=== PATIENT | female | born 2000 | race American Indian/Alaskan Native ===

== ENCOUNTER 2018-06-10 15:08 | Emergency (ER) | payer MEDICAID ==
--- NOTE | 2018-06-10 16:19 | Emergency Department Report ---
ED Back Pain/Injury HPI - General Chief Complaint: Back Pain/Injury Stated Complaint: UPPER AND MIDDLE BACK PAIN Time Seen by Provider: 06/10/18 15:24 Source: patient Limitations: No Limitations - History of Present Illness Initial Comments: 18-year-old female with left upper back pain since yesterday. Patient states she pulled a muscle from lifting and carrying her child's car seat. Denies fever, cough, SOB MD Complaint: back pain -: days(s) (1) Radiation: none Severity: mild Quality: sharp Consistency: intermittent Improves With: immobilization Worsens With: movement Context: unknown Associated Symptoms: denies: chest pain, cough, shortness of breath - Related Data Previous Rx's Medication Instructions Recorded Last Taken Type Methocarbamol [Robaxin-750] 750 mg PO Q6HR PRN #20 tablet 06/10/18 Unknown Rx Naproxen [Naprosyn] 500 mg PO BID #20 tablet 06/10/18 Unknown Rx Allergies Allergy/AdvReac Type Severity Reaction Status Date / Time No Known Allergies Allergy Unverified 06/10/18 15:08 ED Review of Systems ROS: Stated complaint: UPPER AND MIDDLE BACK PAIN Other details as noted in HPI Comment: All other systems reviewed and negative Constitutional: denies: chills, fever Respiratory: denies: shortness of breath Cardiovascular: denies: chest pain Musculoskeletal: back pain, other (deneis leg pain or swelling) ED Past Medical Hx - Past Medical History Previous Medical History?: No - Surgical History Past Surgical History?: No - Social History Smoking Status: Never Smoker Substance Use Type: None - Medications Home Medications: Home Medications Medication Instructions Recorded Confirmed Last Taken Type Methocarbamol [Robaxin-750] 750 mg PO Q6HR PRN #20 tablet 06/10/18 Unknown Rx Naproxen [Naprosyn] 500 mg PO BID #20 tablet 06/10/18 Unknown Rx ED Physical Exam - General Limitations: No Limitations General appearance: alert, in no apparent distress - Head Head exam: Present: atraumatic, normocephalic - Eye Eye exam: Present: normal appearance - ENT ENT exam: Present: mucous membranes moist - Neck Neck exam: Present: normal inspection - Respiratory Respiratory exam: Present: normal lung sounds bilaterally. Absent: respiratory distress - Cardiovascular Cardiovascular Exam: Present: regular rate, normal rhythm - GI/Abdominal GI/Abdominal exam: Present: soft. Absent: distended - Extremities Exam Extremities exam: Present: normal inspection - Back Exam Back exam: Present: paraspinal tenderness (left upper thoracic) - Neurological Exam Neurological exam: Present: alert, oriented X3 - Psychiatric Psychiatric exam: Present: normal affect, normal mood - Skin Skin exam: Present: warm, dry, intact, normal color. Absent: rash ED Course Vital Signs 06/10/18 15:11 Temperature 97.6 F Pulse Rate 66 Respiratory 18 Rate Blood Pressure 118/67 O2 Sat by Pulse 100 Oximetry ED Medical Decision Making - Differential Diagnosis muscle strain Critical care attestation.: If time is entered above; I have spent that time in minutes in the direct care of this critically ill patient, excluding procedure time. ED Disposition Clinical Impression: Acute thoracic myofascial strain Disposition: - TO HOME OR SELFCARE Is pt being admited?: No Condition: Stable Instructions: Muscle Strain (ED) Prescriptions: Naproxen [Naprosyn] 500 mg PO BID #20 tablet Methocarbamol [Robaxin-750] 750 mg PO Q6HR PRN #20 tablet PRN Reason: Spasms Referrals: PRIMARY CARE, [Referring] - 3-5 Days [facility] [place] [Provider Group] - 3-5 Days Forms: Work/School Release Form(ED) Time of Disposition: 16:19
== END 2018-06-10 16:55 | disposition home or self-care (01) ==
LOC: ED 15:08
CPT/HCPCS: 99282